=== PATIENT | female | born 1990 | race Caucasian/White ===

== ENCOUNTER → 2017-02-18 | Outpatient (CLI) | payer OTHER ==
[~2017-02-18] MED LIST: IBUP-1222 PO
== END | disposition home or self-care (01) ==
LOC: CFH 07:27
PROVIDERS: ATTEND Internal Medicine
DX: J18.9 Pneumonia, unspecified organism (principal)
CPT/HCPCS: 71020

== ENCOUNTER → 2017-02-24 | Outpatient (CLI) | payer OTHER ==
[2017-02-24 13:17] LABS: ASPARTATE AMINO TRANSFERASE 20 U/L (15-37); BLOOD UREA NITROGEN 12 mg/dL (7-18)
== END | disposition home or self-care (01) ==
LOC: CFH 07:33
PROVIDERS: ATTEND Internal Medicine
DX: E78.1 Pure hyperglyceridemia (principal); E55.9 Vitamin D deficiency, unspecified; F39 Unspecified mood [affective] disorder; R53.83 Other fatigue
CPT/HCPCS: 36415; 80053; 80061; 82306; 82607; 82746; 84439; 84443; 85025

== ENCOUNTER → 2017-03-17 | Outpatient (CLI) | payer OTHER | END | disposition home or self-care (01) | LOC: CFH 09:04 | PROVIDERS: ATTEND Internal Medicine | DX: J18.9 Pneumonia, unspecified organism (principal) | CPT/HCPCS: 71020 ==

== ENCOUNTER → 2017-04-21 | Outpatient (CLI) | payer OTHER ==
[~2017-04-21] MED LIST changes: +OMNIPAQUE 350 MG/ML, 100ML BOTTLE ONE
[2017-04-21 16:01] LABS: HEMATOCRIT 43.5 % (34.6-47.8); HEMOGLOBIN 14.6 g/dL (11.7-16.4); WHITE BLOOD COUNT 6.2 x10^3/uL (3.4-10)
[2017-04-21 16:27] LABS: ASPARTATE AMINO TRANSFERASE 16 U/L (15-37); BLOOD UREA NITROGEN 12 mg/dL (7-18)
[2017-04-23 21:06] LABS: PROTEIN S FREE 121 % (57-157); PROTEIN S FUNCTIONAL 105 % (63-140); PROTEIN S TOTAL 119 % (60-150)
[2017-04-24 01:16] LABS: DILUTE PROTHROMBIN TIME (DPT) 39.4 sec (0.0-55.0); LUPUS REFLEX INTERPRETATION Comment: (.); PTT-LA 33.7 sec (0.0-51.9)
== END | disposition home or self-care (01) ==
LOC: CFH 14:23
PROVIDERS: ATTEND Internal Medicine
DX: Z00.01 Encounter for general adult medical examination with abnormal findings (principal); R05 Cough; R06.00 Dyspnea, unspecified; D68.59 Other primary thrombophilia; E55.9 Vitamin D deficiency, unspecified; R53.83 Other fatigue; R60.9 Edema, unspecified
CPT/HCPCS: 36415; 71275; 80053; 80061; 81241; 82306; 83036; 84311; 84436; 84443; 84480; 84481; 85025; 85210; 85302; 85303; 85305; 85306; 85610; 85613; 85670; 85705; 85730; 85732; 86147; Q9967

== ENCOUNTER 2018-07-05 07:58 | Day surgery (SDC) | payer OTHER ==
[~2018-07-05] VITALS: Ht 172.7 cm; Wt 117.9 kg
[~2018-07-05 07:58] MED LIST changes: +CYAN2000 PO; +FLUO60TA PO; -OMNIPAQUE 350 MG/ML, 100ML BOTTLE ONE
[2018-07-05 08:44] VITALS: BP 124/84
[2018-07-05] MEDS ORDERED: LACTATED RINGERS 1,000 ML IV SCH (08:47)
[2018-07-05] MEDS ORDERED: ACETAMINOPHEN 500 MG TABLET PO ONE (09:00)
[2018-07-05] MEDS ORDERED: GABAPENTIN 300 MG CAPSULE PO ONE (09:00)
[2018-07-05] MEDS ORDERED: OxyconTIN ER 20 MG TAB.ER PO ONE (09:00)
[2018-07-05] MEDS ORDERED: FENTANYL PF 250 MCG/5ML ONE (09:04)
[2018-07-05] MEDS ORDERED: MIDAZOLAM 1 MG/ML, 2ML ONE (09:04)
[2018-07-05] MEDS ORDERED: CEFAZOLIN 1,000 MG ONE ×2 (09:05)
[2018-07-05] MEDS ORDERED: SODIUM CHLORIDE 0.9% PF 10ML ONE (09:05)
[2018-07-05] MEDS ORDERED: PROPOFOL 10 MG/ML, 20ML ONE (09:05)
[2018-07-05] MEDS ORDERED: ROCURONIUM 10MG/ML,5ML ONE (09:06)
[2018-07-05] MEDS ORDERED: GLYCOPYRROLATE 0.4 MG/2 ML, 2ML ONE (09:06)
[2018-07-05] MEDS ORDERED: NEOSTIGMINE 1 MG/ML, 10ML ONE (09:06)
[2018-07-05] MEDS ORDERED: ONDANSETRON 2MG/ML, 2ML ONE (09:07)
[2018-07-05] MEDS ORDERED: DEXAMETHASONE 4 MG/ML, 1ML ONE ×2 (09:07)
[2018-07-05 09:27] LABS: HCG UR SG 1.022 (1.003-1.030)
[2018-07-05] MEDS ORDERED: LABETALOL 5MG/ML, 20ML IV PRN (10:00)
[2018-07-05] MEDS ORDERED: hydrALAzine 20 MG/ML, 1ML IV PRN (10:00)
[2018-07-05] MEDS ORDERED: ONDANSETRON 2MG/ML, 2ML IV PRN (10:00)
[2018-07-05] MEDS ORDERED: MEPERIDINE/PF 25MG/0.5ML IVPush PRN (10:00)
[2018-07-05] MEDS ORDERED: ONDANSETRON ODT 8 MG PO PRN (10:00)
[2018-07-05] MEDS ORDERED: PROMETHAZINE 12.5 MG SUPP PR PRN (10:00)
[2018-07-05] MEDS ORDERED: HYDROmorphone 1 MG/ML, 1ML IV PRN (10:00)
[2018-07-05] MEDS ORDERED: PROMETHAZINE 25 MG SUPP PR PRN (10:00)
[2018-07-05] MEDS ORDERED: PROMETHAZINE 25 MG/ML, 1ML IV PRN (10:00)
[2018-07-05] MEDS ORDERED: OXYcodone 5 MG/5 ML ORAL.SOL UDC PO PRN (10:00)
[2018-07-05] MEDS ORDERED: PROMETHAZINE 25 MG/ML, 1ML IM PRN ×2 (10:00)
[2018-07-05] MEDS ORDERED: MORPHINE SULFATE 4 MG/ML, 1ML IVPush PRN (10:00)
[2018-07-05] MEDS ORDERED: FENTANYL PF 100 MCG/2ML ONE ×2 (10:37→11:00)
[2018-07-05] MEDS: FENTANYL PF 100 MCG/2ML IV PRN ×2 (11:02→11:17)
[2018-07-05] MEDS ORDERED: OXYcodone 5 MG/5 ML ORAL.SOL UDC ONE (11:16)
== END 2018-07-05 17:20 | disposition home or self-care (01) ==
LOC: OUT 07:58
PROVIDERS: ATTEND Otolaryngology
DX: J03.91 Acute recurrent tonsillitis, unspecified (principal); J35.01 Chronic tonsillitis; K13.6 Irritative hyperplasia of oral mucosa; K13.79 Other lesions of oral mucosa
CPT/HCPCS: 42140; 42826; 81025; 88304; J1100; J2250; J2405; J2704; J2710; J3010; J7120; J0690

== ENCOUNTER → 2018-10-26 | Outpatient (CLI) | payer OTHER ==
[2018-10-26 12:54] LABS: BASOPHILS # (AUTO) 0.04 x10^3/uL (0-0.1); BASOPHILS % (AUTO) 1 % (0-1); EOSINOPHILS # (AUTO) 0.22 x10^3/uL (0-0.4); EOSINOPHILS % (AUTO) 3 % (1-7); LYMPHOCYTES # (AUTO) 1.36 x10^3/uL (1-3.4); LYMPHOCYTES % (AUTO) 17 % (22-44); MD NO; MEAN CORPUSCULAR HEMOGLOBIN 32.4 pg (27.0-34.8); MEAN CORPUSCULAR HGB CONC 34.4 g/dL (32.4-35.8); MEAN CORPUSCULAR VOLUME 94.2 fL (80-100); MEAN PLATELET VOLUME 8.1 fL (7.4-10.4); MONOCYTES # (AUTO) 0.47 x10^3/uL (0.2-0.8); MONOCYTES % (AUTO) 6 % (2-9); NEUTROPHILS # (AUTO) 6.07 x10^3/uL (1.8-6.8); NEUTROPHILS % (AUTO) 74 % (42-75); PLATELET COUNT 327 x10^3/uL (130-400); RED BLOOD COUNT 4.58 x10^6/uL (3.82-5.3); RED CELL DISTRIBUTION WIDTH 12.3 % (9.6-15.2)
[2018-10-26 13:45] LABS: ALBUMIN 3.7 g/dL (3.4-5.0); ANION GAP 5 mmol/L (5-15); CALCIUM 8.7 mg/dL (8.5-10.1); CHLORIDE 110 mmol/L (98-107)
[2018-10-26 13:54] LABS: ALANINE AMINOTRANSFERASE 24 U/L (12-78); ALKALINE PHOSPHATASE 53 U/L (45-117); BILIRUBIN,TOTAL 0.5 mg/dL (0.2-1.0); CHOLESTEROL, TOTAL 164 mg/dL (140-239); CREATININE 0.74 mg/dL (0.55-1.02); FREE T4 (FREE THYROXINE) 0.86 ng/dL (0.76-1.46); HDL CHOL % 20 % (28-40); HDL CHOLESTEROL (DIRECT) 33 mg/dL (40-60); LDL CHOLESTEROL,CALCULATED 82 mg/dL (54-169); LDL/HDL RATIO 2.5 (0.5-3.0); TOTAL PROTEIN 7.7 g/dL (6.4-8.2); TRIGLYCERIDES 244 mg/dL (50-200); VLDL CHOLESTEROL 49 mg/dL (0-25)
== END | disposition home or self-care (01) ==
LOC: CFH 08:02
PROVIDERS: ATTEND Nurse Practitioner Family
DX: Z00.00 Encounter for general adult medical examination without abnormal findings (principal); E55.9 Vitamin D deficiency, unspecified; E66.01 Morbid (severe) obesity due to excess calories; E78.1 Pure hyperglyceridemia; G47.30 Sleep apnea, unspecified; G47.34 Idiopathic sleep related nonobstructive alveolar hypoventilation; F39 Unspecified mood [affective] disorder
CPT/HCPCS: 36415; 80053; 80061; 82306; 84439; 84443; 85025

== ENCOUNTER → 2018-11-09 | Outpatient (CLI) | payer OTHER | END | disposition home or self-care (01) | LOC: CFH 12:38 | PROVIDERS: ATTEND Obstetrics & Gynecology | DX: N63.12 Unspecified lump in the right breast, upper inner quadrant (principal); Z80.3 Family history of malignant neoplasm of breast | CPT/HCPCS: 76642; 77066; G0279 ==

== ENCOUNTER 2019-11-07 09:46 | Outpatient (CLI) | payer OTHER ==
[~2019-11-07] VITALS: Ht 175.3 cm; Wt 134.1 kg
[2019-11-07 10:12] VITALS: BP 148/78
[2019-11-07 10:20] LABS: MICROSCOPIC INDICATED
[2019-11-07 10:30] LABS: BASOPHILS # (AUTO) 0.01 x10^3/uL (0-0.1); BASOPHILS % (AUTO) 0 % (0-1); EOSINOPHILS # (AUTO) 0.07 x10^3/uL (0-0.4); EOSINOPHILS % (AUTO) 1 % (1-7); LYMPHOCYTES # (AUTO) 0.97 x10^3/uL (1-3.4); LYMPHOCYTES % (AUTO) 13 % (22-44); MD NO; MEAN CORPUSCULAR HEMOGLOBIN 31.5 pg (27.0-34.8); MEAN CORPUSCULAR HGB CONC 33.6 g/dL (32.4-35.8); MEAN CORPUSCULAR VOLUME 93.9 fL (80-100); MEAN PLATELET VOLUME 8.8 fL (7.4-10.4); MONOCYTES # (AUTO) 0.57 x10^3/uL (0.2-0.8); MONOCYTES % (AUTO) 8 % (2-9); NEUTROPHILS # (AUTO) 5.71 x10^3/uL (1.8-6.8); NEUTROPHILS % (AUTO) 78 % (42-75); PLATELET COUNT 211 x10^3/uL (130-400); RED BLOOD COUNT 4.01 x10^6/uL (3.82-5.3); RED CELL DISTRIBUTION WIDTH 12.8 % (9.6-15.2)
[2019-11-07 10:38] LABS: ALANINE AMINOTRANSFERASE 24 U/L (12-78); ALBUMIN 2.5 g/dL (3.4-5.0); ANION GAP 9 mmol/L (5-15); CALCIUM 8.5 mg/dL (8.5-10.1); CHLORIDE 112 mmol/L (98-107); CREATININE 0.48 mg/dL (0.55-1.02)
[2019-11-07 10:40] LABS: ALKALINE PHOSPHATASE 115 U/L (45-117); BILIRUBIN,TOTAL 0.3 mg/dL (0.2-1.0); TOTAL PROTEIN 6.7 g/dL (6.4-8.2)
== END 2019-11-07 11:30 | disposition home or self-care (01) ==
LOC: LDOP 09:46
PROVIDERS: ATTEND Obstetrics & Gynecology
DX: Z34.82 Encounter for supervision of other normal pregnancy, second trimester (principal); Z3A.19 19 weeks gestation of pregnancy
CPT/HCPCS: 36415; 59025; 80053; 81001; 82570; 84156; 84550; 85025; 99201; G0463

== ENCOUNTER 2019-11-17 05:32 | Inpatient (IN) | payer OTHER ==
[~2019-11-17] VITALS: Ht 172.7 cm; Wt 135.0 kg
[2019-11-17] MEDS ORDERED: OXYTOCIN 30U/ 0.9% NaCL 500ML 500 ML IV ONE (05:33)
[2019-11-17] MEDS ORDERED: OXYTOCIN 30U/ 0.9% NaCL 500ML 500 ML IV PRN (05:33)
[2019-11-17] MEDS ORDERED: D5%-LACTATED RINGERS 1,000 ML IV SCH (05:33)
[2019-11-17] MEDS ORDERED: PREN-3 PO (05:52)
[2019-11-17] MEDS ORDERED: PLEASE ENTER HEIGHT AND WEIGHT MC SCH (06:00)
[2019-11-17] MEDS ORDERED: CALCIUM CARBONATE 500 MG TAB.CHEW PO PRN ×2 (06:00→21:00)
[2019-11-17] MEDS ORDERED: TERBUTALINE 1 MG/ML, 1ML IVPush PRN (06:00)
[2019-11-17] MEDS ORDERED: ONDANSETRON 2MG/ML, 2ML IVPush PRN (06:00)
[2019-11-17] MEDS ORDERED: TERBUTALINE 1 MG/ML, 1ML SQ PRN (06:00)
[2019-11-17] MEDS ORDERED: FENTANYL PF 100 MCG/2ML IV PRN (06:00)
[2019-11-17] MEDS ORDERED: FENTANYL PF 100 MCG/2ML IVPush PRN (06:00)
[2019-11-17] MEDS: LACTATED RINGERS 1,000 ML IV SCH ×3 (06:15→17:33)
[2019-11-17 06:17] LABS: BASOPHILS # (AUTO) 0.02 x10^3/uL (0-0.1); BASOPHILS % (AUTO) 0 % (0-1); EOSINOPHILS # (AUTO) 0.09 x10^3/uL (0-0.4); EOSINOPHILS % (AUTO) 1 % (1-7); LYMPHOCYTES # (AUTO) 1.14 x10^3/uL (1-3.4); LYMPHOCYTES % (AUTO) 14 % (22-44); MD NO; MEAN CORPUSCULAR HEMOGLOBIN 31.8 pg (27.0-34.8); MEAN CORPUSCULAR VOLUME 93.6 fL (80-100); MEAN PLATELET VOLUME 8.6 fL (7.4-10.4); MONOCYTES # (AUTO) 0.61 x10^3/uL (0.2-0.8); MONOCYTES % (AUTO) 8 % (2-9); NEUTROPHILS # (AUTO) 6.21 x10^3/uL (1.8-6.8); NEUTROPHILS % (AUTO) 77 % (42-75); PLATELET COUNT 188 x10^3/uL (130-400); RED BLOOD COUNT 3.97 x10^6/uL (3.82-5.3); RED CELL DISTRIBUTION WIDTH 13.4 % (9.6-15.2)
[2019-11-17] MEDS ORDERED: MISOPROSTOL 200 MCG TABLET ONE (06:18)
[2019-11-17] MEDS ORDERED: LIDOCAINE 1%, 20ML ONE (06:18)
[2019-11-17] MEDS ORDERED: OXYTOCIN 30U/ 0.9% NaCL 500ML 500 ML ONE ×2 (06:18→21:03)
[2019-11-17] MEDS ORDERED: NEWBORN KIT ONE (06:19)
[2019-11-17 06:26] LABS: ALANINE AMINOTRANSFERASE 22 U/L (12-78); ALBUMIN 2.5 g/dL (3.4-5.0); ANION GAP 6 mmol/L (5-15); CALCIUM 8.4 mg/dL (8.5-10.1); CHLORIDE 111 mmol/L (98-107); CREATININE 0.49 mg/dL (0.55-1.02)
[2019-11-17 06:28] LABS: ALKALINE PHOSPHATASE 116 U/L (45-117); BILIRUBIN,TOTAL 0.1 mg/dL (0.2-1.0); TOTAL PROTEIN 6.6 g/dL (6.4-8.2)
[2019-11-17 06:30] VITALS: BP 148/83
[2019-11-17 06:31] LABS: BILIRUBIN, DIRECT < 0.1 mg/dL (0.1-0.2)
[2019-11-17 07:28] LABS: MICROSCOPIC NOT IND
[2019-11-17 07:37] LABS: CREATININE,URINE RANDOM 63.4 mg/dL
[2019-11-17] MEDS ORDERED: MAGNESIUM SULFATE PMX 4GM/100M 100 ML ONE (07:48)
[2019-11-17] MEDS ORDERED: LABETALOL 5MG/ML, 20ML ONE (07:49)
[2019-11-17] MEDS ORDERED: LABETALOL 5MG/ML, 20ML IVPush PRN ×3 (08:00)
[2019-11-17] MEDS ORDERED: MAGNESIUM SULFATE PMX 2GM/50ML 50 ML IVPB ONE (08:00)
[2019-11-17] MEDS ORDERED: hydrALAzine 20 MG/ML, 1ML IVPush ONE (08:00)
[2019-11-17] MEDS ORDERED: MAGNESIUM SULFATE PMX 4GM/100M 100 ML IVPB ONE ×2 (08:00)
[2019-11-17] MEDS: SODIUM CHLORIDE 0.9% IV SCH (08:25)
[2019-11-17] MEDS: MAGNESIUM SULFATE IV SCH (08:25)
[2019-11-17] MEDS ORDERED: LABETALOL 200 MG TABLET PO STA (09:55)
[2019-11-17] MEDS ORDERED: LABETALOL 200 MG TABLET ONE ×2 (09:56→21:11)
[2019-11-17] MEDS ORDERED: LABETALOL 5MG/ML, 20ML IVPush ONE (13:00)
[2019-11-17] MEDS ORDERED: ACETAMINOPHEN 325 MG TABLET ONE ×2 (13:24→19:18)
[2019-11-17] MEDS: ACETAMINOPHEN 325 MG TABLET PO PRN ×2 (13:35→19:20)
[2019-11-17] MEDS ORDERED: FENTANYL/BUPIV./NS/PF 250 ML EPIDCONT SCH (16:35)
[2019-11-17] MEDS ORDERED: FENTANYL PF 100 MCG/2ML ONE (16:43)
[2019-11-17] MEDS ORDERED: FENTANYL/BUPIV./NS/PF 250 ML EPIDCONT ONE (16:56)
[2019-11-17] MEDS ORDERED: BUPIVACAINE 0.25% ONE (17:02)
[2019-11-17] MEDS: MAGNESIUM SULF. PMX 20GM/500ML 500 ML IV SCH ×2 (17:45→19:47)
[2019-11-17] MEDS ORDERED: OXYTOCIN 30U/ 0.9% NaCL 500ML 500 ML IV SCH (20:35)
[2019-11-17] MEDS ORDERED: HYDROcodone/APAP 5/325 TABLET PO PRN ×2 (21:00)
[2019-11-17] MEDS ORDERED: MISOPROSTOL 200 MCG TABLET PR PRN (21:00)
[2019-11-17] MEDS: OXYTOCIN 30U/ 0.9% NaCL 500ML 500 ML IV SCH (21:00)
[2019-11-17] MEDS ORDERED: ACETAMINOPHEN 325 MG TABLET PO PRN ×2 (21:00)
[2019-11-17] MEDS ORDERED: SIMETHICONE 80 MG CHEW TAB PO PRN (21:00)
[2019-11-17] MEDS ORDERED: ONDANSETRON 2MG/ML, 2ML IV PRN (21:00)
[2019-11-17] MEDS: LABETALOL 200 MG TABLET PO SCH (21:13)
[2019-11-17] MEDS ORDERED: IBUPROFEN 600 MG TABLET ONE (22:25)
[2019-11-17] MEDS: IBUPROFEN 600 MG TABLET PO PRN (22:27)
[2019-11-18] MEDS ORDERED: LABETALOL 5MG/ML, 20ML IVPush PRN ×3 (01:30)
[2019-11-18] MEDS: MAGNESIUM SULF. PMX 20GM/500ML 500 ML IV SCH ×3 (03:45→23:45)
[2019-11-18] MEDS ORDERED: LABETALOL 200 MG TABLET ONE (05:24)
[2019-11-18] MEDS ORDERED: LABETALOL 100 MG TABLET ONE (05:24)
[2019-11-18] MEDS: LABETALOL 200 MG TABLET PO SCH ×3 (05:30→21:53)
[2019-11-18] MEDS ORDERED: OXYTOCIN 30U/ 0.9% NaCL 500ML 500 ML ONE (06:12)
[2019-11-18] MEDS: LACTATED RINGERS 1,000 ML IV SCH (06:19)
[2019-11-18] MEDS: OXYTOCIN 30U/ 0.9% NaCL 500ML 500 ML IV SCH ×2 (06:20→16:35)
[2019-11-18] MEDS: SODIUM CHLORIDE 0.9% IV SCH ×2 (06:34→16:38)
[2019-11-18] MEDS: MAGNESIUM SULFATE IV SCH ×2 (06:34→16:38)
[2019-11-18 07:40] LABS: MEAN CORPUSCULAR HEMOGLOBIN 31.3 pg (27.0-34.8); MEAN CORPUSCULAR HGB CONC 33.1 g/dL (32.4-35.8); MEAN CORPUSCULAR VOLUME 94.5 fL (80-100); MEAN PLATELET VOLUME 8.6 fL (7.4-10.4); PLATELET COUNT 193 x10^3/uL (130-400); RED BLOOD COUNT 3.76 x10^6/uL (3.82-5.3)
[2019-11-18 08:33] LABS: BASOPHILS # (AUTO) 0.01 x10^3/uL (0-0.1); BASOPHILS % (AUTO) 0 % (0-1); EOSINOPHILS # (AUTO) 0.06 x10^3/uL (0-0.4); EOSINOPHILS % (AUTO) 1 % (1-7); LYMPHOCYTES % (AUTO) 10 % (22-44); MD SCAN; MONOCYTES # (AUTO) 0.83 x10^3/uL (0.2-0.8); MONOCYTES % (AUTO) 7 % (2-9); NEUTROPHILS # (AUTO) 9.64 x10^3/uL (1.8-6.8); NEUTROPHILS % (AUTO) 82 % (42-75)
[2019-11-18] MEDS: PRENATAL VIT/IRON/FA 1 EACH TABLET PO SCH (09:00)
[2019-11-18] MEDS: IBUPROFEN 600 MG TABLET PO PRN (21:53)
[2019-11-19] MEDS: OXYTOCIN 30U/ 0.9% NaCL 500ML 500 ML IV SCH ×3 (02:35→22:35)
[2019-11-19] MEDS: LABETALOL 200 MG TABLET PO SCH ×3 (05:39→21:12)
[2019-11-19 07:40] VITALS: BP 158/102
[2019-11-19] MEDS: PRENATAL VIT/IRON/FA 1 EACH TABLET PO SCH (09:51)
[2019-11-19] MEDS: DOCUSATE 100 MG CAPSULE PO PRN (09:52)
[2019-11-19] MEDS: FLUOXETINE HCL 20 MG CAPSULE PO SCH (09:52)
[2019-11-19] MEDS: IBUPROFEN 600 MG TABLET PO PRN (09:52)
[2019-11-19 12:30] VITALS: BP 173/104
[2019-11-19 19:02] VITALS: BP 160/104
[2019-11-19] MEDS ORDERED: niFEDipine ER 30 MG TABLET.ER ONE (19:11)
[2019-11-19] MEDS: niFEDipine ER 30 MG TABLET.ER PO SCH (19:14)
[2019-11-19 19:55] VITALS: BP 144/88
[2019-11-20] VITALS (8 sets, daily range): BP systolic 141–160; BP diastolic 85–108
[2019-11-20] MEDS: IBUPROFEN 600 MG TABLET PO PRN ×3 (00:13→12:49)
[2019-11-20] MEDS: LABETALOL 200 MG TABLET PO SCH ×3 (05:58→21:25)
[2019-11-20] MEDS: OXYTOCIN 30U/ 0.9% NaCL 500ML 500 ML IV SCH ×2 (08:31→18:35)
[2019-11-20] MEDS: DOCUSATE 100 MG CAPSULE PO PRN ×2 (09:01→21:25)
[2019-11-20] MEDS: niFEDipine ER 30 MG TABLET.ER PO SCH (09:01)
[2019-11-20] MEDS: PRENATAL VIT/IRON/FA 1 EACH TABLET PO SCH (09:01)
[2019-11-20] MEDS: FLUOXETINE HCL 20 MG CAPSULE PO SCH (09:01)
[2019-11-21 00:06] VITALS: BP 150/89
[2019-11-21] MEDS: OXYTOCIN 30U/ 0.9% NaCL 500ML 500 ML IV SCH (04:09)
[2019-11-21 05:12] VITALS: BP 157/94
[2019-11-21] MEDS: IBUPROFEN 600 MG TABLET PO PRN (05:13)
[2019-11-21] MEDS: LABETALOL 200 MG TABLET PO SCH (05:14)
[2019-11-21 07:40] VITALS: BP 144/89
[2019-11-21] MEDS: FLUOXETINE HCL 20 MG CAPSULE PO SCH (09:19)
[2019-11-21] MEDS: DOCUSATE 100 MG CAPSULE PO PRN (09:19)
[2019-11-21] MEDS: niFEDipine ER 30 MG TABLET.ER PO SCH (09:19)
[2019-11-21] MEDS: PRENATAL VIT/IRON/FA 1 EACH TABLET PO SCH (09:19)
[2019-11-21] MEDS ORDERED: IBUP-1222 PO (09:21)
[2019-11-21] MEDS ORDERED: LABE100T6 PO (09:21)
[2019-11-21] MEDS ORDERED: NIFE30TA2 PO (09:22)
== END 2019-11-21 11:00 | disposition home or self-care (01) | DRG 806 ==
LOC: LDIP 05:32 → 2NE 22:45 → 2NW 11-18 21:53
PROVIDERS: ADMIT Obstetrics & Gynecology; ATTEND Obstetrics & Gynecology
PROC: 10E0XZZ Delivery of Products of Conception, External Approach (ICD-10-PCS; principal; 2019-11-17)
PROC: 0UQMXZZ Repair Vulva, External Approach (ICD-10-PCS; 2019-11-17)
PROC: 10907ZC Drainage of Amniotic Fluid, Therapeutic from Products of Conception, Via Natural or Artificial Opening (ICD-10-PCS; 2019-11-17)
PROC: 3E0R3BZ Introduction of Anesthetic Agent into Spinal Canal, Percutaneous Approach (ICD-10-PCS; 2019-11-17)
PROC: 00HU33Z Insertion of Infusion Device into Spinal Canal, Percutaneous Approach (ICD-10-PCS; 2019-11-17)
DX: O69.1XX0 Labor and delivery complicated by cord around neck, with compression, not applicable or unspecified (principal); B00.2 Herpesviral gingivostomatitis and pharyngotonsillitis; Z37.0 Single live birth; O10.92 Unspecified pre-existing hypertension complicating childbirth; O98.52 Other viral diseases complicating childbirth; O11.4 Pre-existing hypertension with pre-eclampsia, complicating childbirth; O70.0 First degree perineal laceration during delivery; O71.82 Other specified trauma to perineum and vulva; O76 Abnormality in fetal heart rate and rhythm complicating labor and delivery; Z3A.39 39 weeks gestation of pregnancy; Z79.899 Other long term (current) drug therapy
CPT/HCPCS: 36415; 80053; 81003; 82248; 82570; 83735; 84156; 84550; 85025; 86592; 86850; 86900; G0378; J3010; J3475; J2590; J7040; J7120

== ENCOUNTER → 2020-03-06 | Outpatient (CLI) | payer OTHER ==
[~2020-03-06] MED LIST changes: +LABE100T6 PO; +NIFE30TA2 PO; +PREN-3 PO
[2020-03-06 13:38] LABS: BASOPHILS # (AUTO) 0.02 x10^3/uL (0-0.1); BASOPHILS % (AUTO) 0 % (0-1); EOSINOPHILS # (AUTO) 0.11 x10^3/uL (0-0.4); EOSINOPHILS % (AUTO) 2 % (1-7); LYMPHOCYTES # (AUTO) 1.11 x10^3/uL (1-3.4); LYMPHOCYTES % (AUTO) 16 % (22-44); MD NO; MEAN CORPUSCULAR HEMOGLOBIN 30.4 pg (27.0-34.8); MEAN CORPUSCULAR HGB CONC 33.2 g/dL (32.4-35.8); MEAN CORPUSCULAR VOLUME 91.6 fL (80-100); MEAN PLATELET VOLUME 8.4 fL (7.4-10.4); MONOCYTES # (AUTO) 0.28 x10^3/uL (0.2-0.8); MONOCYTES % (AUTO) 4 % (2-9); NEUTROPHILS # (AUTO) 5.38 x10^3/uL (1.8-6.8); NEUTROPHILS % (AUTO) 78 % (42-75); PLATELET COUNT 300 x10^3/uL (130-400); RED BLOOD COUNT 4.62 x10^6/uL (3.82-5.3); RED CELL DISTRIBUTION WIDTH 13.3 % (9.6-15.2)
[2020-03-06 13:52] LABS: CHLORIDE 111 mmol/L (98-107)
[2020-03-06 14:04] LABS: ALANINE AMINOTRANSFERASE 21 U/L (12-78); ALBUMIN 3.8 g/dL (3.4-5.0); ALKALINE PHOSPHATASE 89 U/L (45-117); ANION GAP 5 mmol/L (5-15); BILIRUBIN,TOTAL 0.3 mg/dL (0.2-1.0); CALCIUM 8.6 mg/dL (8.5-10.1); CHOL/HDL RATIO 5.8; CHOLESTEROL, TOTAL 198 mg/dL (140-239); CREATININE 0.83 mg/dL (0.55-1.02); HDL CHOL % 17 % (28-40); HDL CHOLESTEROL (DIRECT) 34 mg/dL (40-60); LDL CHOLESTEROL,CALCULATED 136 mg/dL (54-169); TOTAL PROTEIN 7.9 g/dL (6.4-8.2); TRIGLYCERIDES 139 mg/dL (50-200); VLDL CHOLESTEROL 28 mg/dL (0-25)
== END | disposition home or self-care (01) ==
LOC: CFH 08:23
PROVIDERS: ATTEND Nurse Practitioner Family
DX: I10 Essential (primary) hypertension (principal); E55.9 Vitamin D deficiency, unspecified; E78.1 Pure hyperglyceridemia; F33.9 Major depressive disorder, recurrent, unspecified
CPT/HCPCS: 36415; 80053; 80061; 84439; 84443; 85025

== ENCOUNTER → 2020-06-08 | Outpatient (CLI) | payer OTHER ==
[2020-06-08 08:31] LABS: BASOPHILS % (AUTO) 1 % (0-1); EOSINOPHILS % (AUTO) 2 % (1-7); LYMPHOCYTES % (AUTO) 15 % (22-44); MEAN CORPUSCULAR HEMOGLOBIN 31.3 pg (27.0-34.8); MEAN CORPUSCULAR HGB CONC 33.7 g/dL (32.4-35.8); MEAN PLATELET VOLUME 7.5 fL (7.4-10.4); MONOCYTES % (AUTO) 6 % (2-9); NEUTROPHILS % (AUTO) 77 % (42-75); PLATELET COUNT 342 x10^3/uL (130-400); RED BLOOD COUNT 4.54 x10^6/uL (3.82-5.3); RED CELL DISTRIBUTION WIDTH 12.6 % (9.6-15.2)
[2020-06-08 08:41] LABS: ALANINE AMINOTRANSFERASE 22 U/L (12-78); ALBUMIN 3.8 g/dL (3.4-5.0); ANION GAP 5 mmol/L (5-15); CALCIUM 9.1 mg/dL (8.5-10.1); CHLORIDE 109 mmol/L (98-107); CHOLESTEROL, TOTAL 199 mg/dL (140-239); CREATININE 0.83 mg/dL (0.55-1.02); MD NO; TRIGLYCERIDES 231 mg/dL (50-200); VLDL CHOLESTEROL 46 mg/dL (0-25)
[2020-06-08 08:43] LABS: ALKALINE PHOSPHATASE 84 U/L (45-117); BILIRUBIN,TOTAL 0.6 mg/dL (0.2-1.0); CHOL/HDL RATIO 4.9; HDL CHOL % 21 % (28-40); HDL CHOLESTEROL (DIRECT) 41 mg/dL (40-60); LDL CHOLESTEROL,CALCULATED 112 mg/dL (54-169); LDL/HDL RATIO 2.7 (0.5-3.0); TOTAL PROTEIN 8.1 g/dL (6.4-8.2)
== END | disposition home or self-care (01) ==
LOC: LAB 08:17
PROVIDERS: ATTEND Nurse Practitioner Family
DX: I10 Essential (primary) hypertension (principal); E55.9 Vitamin D deficiency, unspecified; E66.01 Morbid (severe) obesity due to excess calories; E78.1 Pure hyperglyceridemia; F33.9 Major depressive disorder, recurrent, unspecified; G47.30 Sleep apnea, unspecified
CPT/HCPCS: 36415; 80053; 80061; 82306; 83036; 85025

== ENCOUNTER → 2020-08-29 | Outpatient (CLI) | payer OTHER ==
[2020-08-29 08:35] LABS: BASOPHILS % (AUTO) 1 % (0-1); EOSINOPHILS % (AUTO) 3 % (1-7); LYMPHOCYTES % (AUTO) 17 % (22-44); MEAN CORPUSCULAR HEMOGLOBIN 31.3 pg (27.0-34.8); MEAN CORPUSCULAR HGB CONC 33.7 g/dL (32.4-35.8); MEAN PLATELET VOLUME 7.7 fL (7.4-10.4); MONOCYTES % (AUTO) 6 % (2-9); NEUTROPHILS % (AUTO) 74 % (42-75); PLATELET COUNT 320 x10^3/uL (130-400); RED BLOOD COUNT 4.43 x10^6/uL (3.82-5.3); RED CELL DISTRIBUTION WIDTH 13.2 % (9.6-15.2)
[2020-08-29 08:38] LABS: MD NO
[2020-08-29 08:51] LABS: ALBUMIN 3.8 g/dL (3.4-5.0); ANION GAP 7 mmol/L (5-15); CALCIUM 9.2 mg/dL (8.5-10.1); CHLORIDE 112 mmol/L (98-107)
[2020-08-29 08:54] LABS: ALANINE AMINOTRANSFERASE 34 U/L (12-78); ALKALINE PHOSPHATASE 80 U/L (45-117); BILIRUBIN,TOTAL 0.4 mg/dL (0.2-1.0); CHOL/HDL RATIO 5.5; CHOLESTEROL, TOTAL 204 mg/dL (140-239); CREATININE 0.87 mg/dL (0.55-1.02); HDL CHOL % 18 % (28-40); HDL CHOLESTEROL (DIRECT) 37 mg/dL (40-60); LDL CHOLESTEROL,CALCULATED 115 mg/dL (54-169); LDL/HDL RATIO 3.1 (0.5-3.0); TOTAL PROTEIN 7.9 g/dL (6.4-8.2); TRIGLYCERIDES 262 mg/dL (50-200); VLDL CHOLESTEROL 52 mg/dL (0-25)
== END | disposition home or self-care (01) ==
LOC: LAB 08:21
PROVIDERS: ATTEND Nurse Practitioner Family
DX: E66.01 Morbid (severe) obesity due to excess calories (principal); E55.9 Vitamin D deficiency, unspecified; E78.1 Pure hyperglyceridemia; G47.30 Sleep apnea, unspecified; I10 Essential (primary) hypertension; F33.9 Major depressive disorder, recurrent, unspecified
CPT/HCPCS: 36415; 80053; 80061; 82306; 83036; 85025

== ENCOUNTER → 2020-10-05 | Outpatient (CLI) | payer OTHER ==
[2020-10-05 13:48] LABS: ALANINE AMINOTRANSFERASE 24 U/L (12-78)
== END | disposition home or self-care (01) ==
LOC: LAB 13:25
PROVIDERS: ATTEND Nurse Practitioner Family
DX: E78.1 Pure hyperglyceridemia (principal)
CPT/HCPCS: 36415; 84450; 84460

== ENCOUNTER → 2020-11-12 | Outpatient (CLI) | payer OTHER ==
[2020-11-12 12:05] LABS: FREE T4 (FREE THYROXINE) 0.8 ng/dL (0.76-1.46)
== END | disposition home or self-care (01) ==
LOC: LAB 11:28
PROVIDERS: ATTEND Obstetrics & Gynecology
DX: R63.5 Abnormal weight gain (principal)
CPT/HCPCS: 36415; 82306; 84439; 84443

== ENCOUNTER → 2021-04-12 | Outpatient (CLI) | payer OTHER | END | disposition home or self-care (01) | LOC: RAD 14:30 | PROVIDERS: ATTEND Surgery | DX: Z01.818 Encounter for other preprocedural examination (principal); K76.0 Fatty (change of) liver, not elsewhere classified; E66.01 Morbid (severe) obesity due to excess calories | CPT/HCPCS: 71046; 74246 ==

== ENCOUNTER → 2021-05-27 | Outpatient (CLI) | payer OTHER ==
[2021-05-27 12:01] LABS: BASOPHILS % (AUTO) 1 % (0-1); EOSINOPHILS % (AUTO) 2 % (1-7); LYMPHOCYTES % (AUTO) 23 % (22-44); MEAN CORPUSCULAR HEMOGLOBIN 32.1 pg (27.0-34.8); MEAN CORPUSCULAR HGB CONC 34.3 g/dL (32.4-35.8); MEAN PLATELET VOLUME 7.8 fL (7.4-10.4); MONOCYTES % (AUTO) 7 % (2-9); NEUTROPHILS % (AUTO) 67 % (42-75); PLATELET COUNT 332 x10^3/uL (130-400); RED BLOOD COUNT 4.56 x10^6/uL (3.82-5.3); RED CELL DISTRIBUTION WIDTH 12.6 % (9.6-15.2)
[2021-05-27 12:06] LABS: CALCIUM 8.7 mg/dL (8.5-10.1); CHLORIDE 108 mmol/L (98-107)
[2021-05-27 12:20] LABS: ALANINE AMINOTRANSFERASE 25 U/L (12-78); ALBUMIN 3.7 g/dL (3.4-5.0); ALKALINE PHOSPHATASE 73 U/L (45-117); ANION GAP 4 mmol/L (5-15); BILIRUBIN,TOTAL 0.5 mg/dL (0.2-1.0); CREATININE 0.65 mg/dL (0.55-1.02); TOTAL PROTEIN 7.7 g/dL (6.4-8.2)
== END | disposition home or self-care (01) ==
LOC: LAB 11:23
PROVIDERS: ATTEND Surgery
DX: Z01.818 Encounter for other preprocedural examination (principal); K76.0 Fatty (change of) liver, not elsewhere classified; E66.01 Morbid (severe) obesity due to excess calories
CPT/HCPCS: 36415; 80053; 83036; 84443; 85025; 93005